=== PATIENT | male | born 1980 | race Caucasian/White ===

== ENCOUNTER 2018-09-27 22:43 | Inpatient (IN) | payer SELFPAY ==
[2018-09-27] MEDS ORDERED: Adacel (T-DAP) 0.5 ML VIAL ONE (22:47)
[2018-09-27] MEDS ORDERED: CEFAZOLIN 2 GM/50 ML-DEXTROSE 2 GM in Premix Bag 1 BAG IVPB SCH (23:00)
[2018-09-27 23:02] LABS: #Eosinphils 0.3 thou/uL (0.0-0.7); #Lymphocytes 1.8 thou/uL (1.20-3.40); #Monocytes 0.7 thou/uL (0.11-0.59); #Neutrophils 5.4 thou/uL (1.40-6.50); %Basophils 0.5 % (0.0-1.0); %Eosinophils 3.5 % (0.0-10.0); %Lymphocytes 22.2 % (21.0-51.0); %Monocytes 8.9 % (0.0-10.0); %Neutrophils 64.8 % (42.0-75.0); Hemoglobin 13.8 g/dL (14.0-18.0); Mean Corpuscular HGB CONC 33.6 g/dL (32.0-36.0); Mean Corpuscular Hemoglobin 30.8 pg (27.0-31.0); Mean Corpuscular Volume 91.9 fL (78.0-98.0); Platelet Count 330 thou/uL (130-400); RBC Distribution Width 11.8 % (11.5-14.5); Red Blood Cell (RBC) Count 4.49 mill/uL (4.70-6.10); White Blood Cell (WBC) Count 8.3 thou/uL (4.8-10.8)
[2018-09-27 23:11] LABS: PTT 25.7 SEC (22.9-36.1); Prothrombin Time 13.6 SEC (12.0-14.7)
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
[2018-09-27 23:15] LABS: ALT (SGPT) 46 U/L (8-55); AST (SGOT) 26 U/L (5-34); Acetaminophen Less than 6.0 mcg/mL (10.0-30.0); Albumin 4.6 g/dL (3.5-5.0); Alcohol Less than 10 mg/dL (Less than 10); Alkaline Phosphatase 53 U/L (40-150); Anion Gap 15 mmol/L (10-20); BUN (Urea Nitrogen) 16 mg/dL (8.9-20.6); Bilirubin, Total 0.4 mg/dL (0.2-1.2); Calc. Creatinine Clearance 0 mL/min (70-130); Calcium 9.7 mg/dL (7.8-10.44); Carbon Dioxide 21 mmol/L (22-29); Chloride 104 mmol/L (98-107); Estimated GFR-MDRD 69; Globulin 2.8 g/dL (2.4-3.5); Glucose 155 mg/dL (70-105); Potassium 3.7 mmol/L (3.5-5.1); Protein, Total 7.4 g/dL (6.0-8.3); Salicylate Less than 8.0 mg/dL (15.0-30.0); Sodium 136 mmol/L (136-145)
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
[2018-09-27] MEDS ORDERED: Fentanyl 100 MCG/2 ML VIAL ONE (23:21)
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
[2018-09-27] MEDS ORDERED: Promethazine HCl 25 MG/ML VIAL IM PRN ×2 (23:59)
[2018-09-27] MEDS ORDERED: Dextrose 50% Abboject 50 ML SYRINGE SLOW IVP PRN (23:59)
[2018-09-27] MEDS ORDERED: hydrALAZINE 20 MG/ML VIAL SLOW IVP PRN (23:59)
[2018-09-27] MEDS ORDERED: Dextrose 5% in Water 1,000 ML IV PRN (23:59)
[2018-09-27] MEDS ORDERED: Ondansetron ODT 4 MG TAB PO PRN (23:59)
[2018-09-27] MEDS ORDERED: Ondansetron PF 4 MG/2 ML Vial IVP PRN (23:59)
[2018-09-27] MEDS ORDERED: Morphine 2 MG/ML SYRINGE IVP PRN (23:59)
[2018-09-28] MEDS: Sodium Chloride 0.9% 1,000 ML IV SCH ×3 (00:27→12:50)
[2018-09-28] MEDS: Acetaminophen 1,000 MG in Premix Bag 1 BAG IVPB SCH ×3 (00:28→12:45)
[2018-09-28] MEDS: Ketorolac Tromethamine 30 MG/ML VIAL IVP SCH ×3 (00:30→12:45)
[2018-09-28] MEDS: Cyclobenzaprine 10 MG TAB PO PRN ×2 (00:31→20:18)
[2018-09-28 01:03] VITALS: BMI 32.3
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
[2018-09-28 05:18] LABS: #Eosinphils 0.6 thou/uL (0.0-0.7); #Lymphocytes 2.8 thou/uL (1.20-3.40); #Monocytes 0.9 thou/uL (0.11-0.59); #Neutrophils 4.9 thou/uL (1.40-6.50); %Basophils 0.4 % (0.0-1.0); %Eosinophils 6.3 % (0.0-10.0); %Lymphocytes 30.6 % (21.0-51.0); %Monocytes 9.5 % (0.0-10.0); %Neutrophils 53.2 % (42.0-75.0); Hemoglobin 12.1 g/dL (14.0-18.0); Mean Corpuscular HGB CONC 33.5 g/dL (32.0-36.0); Mean Corpuscular Hemoglobin 30.8 pg (27.0-31.0); Mean Corpuscular Volume 91.8 fL (78.0-98.0); Mean Platelet Volume 7.2 fL (7.4-10.4); Platelet Count 313 thou/uL (130-400); RBC Distribution Width 11.8 % (11.5-14.5); Red Blood Cell (RBC) Count 3.94 mill/uL (4.70-6.10); White Blood Cell (WBC) Count 9.3 thou/uL (4.8-10.8)
[2018-09-28 05:32] LABS: Anion Gap 9 mmol/L (10-20); BUN (Urea Nitrogen) 14 mg/dL (8.9-20.6); Calc. Creatinine Clearance 166 mL/min (70-130); Calcium 8.6 mg/dL (7.8-10.44); Carbon Dioxide 24 mmol/L (22-29); Chloride 108 mmol/L (98-107); Estimated GFR-MDRD 81; Glucose 103 mg/dL (70-105); Sodium 137 mmol/L (136-145)
[2018-09-28] MEDS ORDERED: CEFAZOLIN/Water 2 GM/20 ML SYRINGE SLOW IVP SCH ×2 (08:00→12:04)
[2018-09-28] MEDS ORDERED: CEFAZOLIN 2 GM/50 ML-DEXTROSE 2 GM in Premix Bag 1 BAG IVPB SCH ×2 (08:15→12:15)
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
[2018-09-28] MEDS: Famotidine 20 MG TAB PO SCH ×2 (08:27→20:18)
[2018-09-28] MEDS ORDERED: CEFAZOLIN 2 GM/50 ML BAG ONE (09:04)
[2018-09-28] MEDS ORDERED: Morphine 4 MG/ML VIAL ONE (09:30)
[2018-09-28] MEDS ORDERED: Fentanyl 100 MCG/2 ML VIAL ONE (10:13)
[2018-09-28] MEDS ORDERED: Midazolam HCl 2 mg/2 ml Vial ONE (10:13)
[2018-09-28] MEDS ORDERED: Ondansetron HCl/PF 4 MG/2 ML Vial IVP PRN (10:57)
[2018-09-28] MEDS ORDERED: Promethazine HCl 25 MG/ML VIAL IM PRN (10:57)
[2018-09-28] MEDS ORDERED: HYDROmorphone 2 MG/ML VIAL SLOW IVP PRN (10:57)
[2018-09-28] MEDS ORDERED: Promethazine HCl 25 MG/ML VIAL SLOW IVP PRN (10:57)
[2018-09-28] MEDS ORDERED: HYDROcodone/Acetaminophen 7.5/325 mg Tablet PO PRN ×2 (11:02)
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
[2018-09-28] MEDS: Ibuprofen 800 MG TAB PO SCH ×2 (13:08→20:19)
[2018-09-28] MEDS ORDERED: PHENYLEPHRINE-NS 100 MCG/ML 10 ML SYRINGE ONE (14:37)
[2018-09-28] MEDS ORDERED: Ondansetron PF 4 MG/2 ML Vial ONE (14:37)
[2018-09-28] MEDS ORDERED: Lidocaine 1% PF 5 ML VIAL ONE (14:37)
[2018-09-28] MEDS ORDERED: PROPOFOL 200 MG/20 ML VIAL ONE (14:37)
[2018-09-28] MEDS ORDERED: Dexamethasone 20 MG/5 ML VIAL ONE (14:37)
[2018-09-28] MEDS ORDERED: traMADol HCl 50 MG TAB PO PRN (15:44)
[2018-09-28] MEDS: CEFAZOLIN 2 GM/50 ML-DEXTROSE 2 GM in Premix Bag 1 BAG IVPB SCH (17:02)
[2018-09-28] MEDS: Acetaminophen 500 MG TAB PO SCH ×2 (17:02→20:19)
[2018-09-28] MEDS: traMADol HCl 50 MG TAB PO PRN (18:47)
[2018-09-29] MEDS: CEFAZOLIN 2 GM/50 ML-DEXTROSE 2 GM in Premix Bag 1 BAG IVPB SCH (01:15)
[2018-09-29] MEDS: traMADol HCl 50 MG TAB PO PRN ×2 (03:14→10:57)
[2018-09-29] MEDS: Acetaminophen 500 MG TAB PO SCH ×2 (03:14→08:01)
[2018-09-29] MEDS: Ibuprofen 800 MG TAB PO SCH (04:30)
[2018-09-29] MEDS: Cyclobenzaprine 10 MG TAB PO PRN (04:30)
[2018-09-29] MEDS: Famotidine 20 MG TAB PO SCH (08:02)
[2018-09-29 12:05] VITALS: BP 136/86; TEMP 98
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
== END 2018-09-29 12:49 | disposition home or self-care (01) | DRG 502 ==
LOC: ERS 22:43 → SURG A 23:57
PROVIDERS: ADMIT Surgery; ATTEND Surgery
PROC: 0KBQ0ZZ Excision of Right Upper Leg Muscle, Open Approach (ICD-10-PCS; principal; 2018-09-28)
PROC: 0QBN0ZZ Excision of Right Metatarsal, Open Approach (ICD-10-PCS; 2018-09-28)
DX: S92.351B Displaced fracture of fifth metatarsal bone, right foot, initial encounter for open fracture (principal); S71.121A Laceration with foreign body, right thigh, initial encounter; F31.9 Bipolar disorder, unspecified; F17.210 Nicotine dependence, cigarettes, uncomplicated; W32.0XXA Accidental handgun discharge, initial encounter; Z79.899 Other long term (current) drug therapy
CPT/HCPCS: 36415; 71045; 80048; 80053; 80307; 85025; 85610; 85730; 86850; 86900; 86901; 90471; 90715; 96361; 96374; 96375; G0390; G8978-GP-CL; G8979-GP-CK; G8987-GO-CI; G8988-GO-CI; J0131; J1100; J1885; J2001; J2250; J2270; J2405; J2704; J3010

== ENCOUNTER 2018-10-19 19:32 | Observation (INO) | payer SELFPAY ==
[2018-10-19] MEDS ORDERED: Cefepime 2 GM in Sodium Chloride 0.9% 100 ML IVPB ONE (20:15)
[2018-10-19 20:28] LABS: #Basophils 0.1 thou/uL (0.0-0.2); #Eosinphils 0.2 thou/uL (0.0-0.7); #Lymphocytes 1.7 thou/uL (1.20-3.40); #Monocytes 0.5 thou/uL (0.11-0.59); #Neutrophils 5.1 thou/uL (1.40-6.50); %Basophils 0.8 % (0.0-1.0); %Eosinophils 2.3 % (0.0-10.0); %Lymphocytes 22.6 % (21.0-51.0); %Monocytes 6.6 % (0.0-10.0); %Neutrophils 67.7 % (42.0-75.0); Hemoglobin 13.7 g/dL (14.0-18.0); Mean Corpuscular HGB CONC 34.9 g/dL (32.0-36.0); Mean Corpuscular Hemoglobin 31.6 pg (27.0-31.0); Mean Corpuscular Volume 90.5 fL (78.0-98.0); Mean Platelet Volume 7.1 fL (7.4-10.4); Platelet Count 460 thou/uL (130-400); RBC Distribution Width 11.6 % (11.5-14.5); Red Blood Cell (RBC) Count 4.32 mill/uL (4.70-6.10); White Blood Cell (WBC) Count 7.5 thou/uL (4.8-10.8)
[2018-10-19] MEDS ORDERED: Ketorolac Tromethamine 30 MG/ML VIAL ONE (20:30)
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
[2018-10-19 20:51] LABS: ALT (SGPT) 87 U/L (8-55); AST (SGOT) 54 U/L (5-34); Albumin 4.6 g/dL (3.5-5.0); Alkaline Phosphatase 68 U/L (40-150); Anion Gap 14 mmol/L (10-20); BUN (Urea Nitrogen) 11 mg/dL (8.9-20.6); Bilirubin, Total 0.3 mg/dL (0.2-1.2); Calc. Creatinine Clearance 0 mL/min (70-130); Calcium 9.9 mg/dL (7.8-10.44); Carbon Dioxide 25 mmol/L (22-29); Chloride 105 mmol/L (98-107); Estimated GFR-MDRD 64; Globulin 3.4 g/dL (2.4-3.5); Glucose 113 mg/dL (70-105); Potassium 4.4 mmol/L (3.5-5.1); Sodium 140 mmol/L (136-145)
[2018-10-19] MEDS ORDERED: Morphine 2 MG/ML SYRINGE ONE ×2 (21:42→21:48)
[2018-10-20] MEDS ORDERED: Morphine 2 MG/ML SYRINGE ONE (00:16)
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
[2018-10-20] MEDS ORDERED: Ondansetron ODT 4 MG TAB PO PRN (01:32)
[2018-10-20] MEDS ORDERED: Dextrose 5% in Water 1,000 ML IV PRN (01:32)
[2018-10-20] MEDS ORDERED: Ondansetron PF 4 MG/2 ML Vial IVP PRN (01:32)
[2018-10-20] MEDS ORDERED: hydrALAZINE 20 MG/ML VIAL SLOW IVP PRN (01:32)
[2018-10-20] MEDS ORDERED: Dextrose 50% Abboject 50 ML SYRINGE SLOW IVP PRN (01:32)
[2018-10-20] MEDS: Sodium Chloride 0.9% 1,000 ML IV SCH ×2 (01:50→19:01)
[2018-10-20] MEDS: Ketorolac Tromethamine 30 MG/ML VIAL IVP SCH ×2 (01:50→07:29)
[2018-10-20] MEDS: Acetaminophen 1,000 MG in Premix Bag 1 BAG IVPB SCH ×2 (01:50→07:30)
[2018-10-20] MEDS: metroNIDAZOLE 500 MG in Premix Bag 1 BAG IVPB SCH ×2 (01:51→07:29)
[2018-10-20 02:11] VITALS: BMI 31.6
[2018-10-20] MEDS: Morphine 2 MG/ML SYRINGE IVP PRN ×4 (04:23→20:54)
[2018-10-20 06:21] LABS: #Eosinphils 0.3 thou/uL (0.0-0.7); #Lymphocytes 2.1 thou/uL (1.20-3.40); #Monocytes 0.8 thou/uL (0.11-0.59); #Neutrophils 3.7 thou/uL (1.40-6.50); %Basophils 0.7 % (0.0-1.0); %Eosinophils 4.4 % (0.0-10.0); %Lymphocytes 30.9 % (21.0-51.0); %Monocytes 11.2 % (0.0-10.0); %Neutrophils 52.8 % (42.0-75.0); Mean Corpuscular Hemoglobin 31.1 pg (27.0-31.0); Mean Corpuscular Volume 91.4 fL (78.0-98.0); Mean Platelet Volume 7.2 fL (7.4-10.4); Platelet Count 425 thou/uL (130-400); RBC Distribution Width 11.7 % (11.5-14.5); Red Blood Cell (RBC) Count 3.87 mill/uL (4.70-6.10); White Blood Cell (WBC) Count 6.9 thou/uL (4.8-10.8)
[2018-10-20 06:25] LABS: Anion Gap 12 mmol/L (10-20); BUN (Urea Nitrogen) 13 mg/dL (8.9-20.6); Calc. Creatinine Clearance 176 mL/min (70-130); Calcium 9.2 mg/dL (7.8-10.44); Carbon Dioxide 21 mmol/L (22-29); Chloride 109 mmol/L (98-107); Estimated GFR-MDRD 89; Glucose 97 mg/dL (70-105); Potassium 4.2 mmol/L (3.5-5.1); Sodium 138 mmol/L (136-145)
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
[2018-10-20] MEDS ORDERED: Ibuprofen 800 MG TAB PO PRN (12:03)
[2018-10-20] MEDS ORDERED: traMADol HCl 50 MG TAB PO PRN (12:03)
[2018-10-20] MEDS ORDERED: Acetaminophen 500 MG TAB PO SCH (12:30)
[2018-10-20] MEDS: cefTRIAXone\\ROCEPHIN 2 GM in Sodium Chloride 0.9% 100 ML IVPB SCH (12:57)
[2018-10-20] MEDS: traMADol HCl 50 MG TAB PO PRN ×2 (12:59→17:24)
[2018-10-20] MEDS: Gabapentin 400 MG CAP PO SCH ×2 (12:59→17:25)
[2018-10-20] MEDS: Famotidine 20 MG TAB PO SCH ×2 (13:03→20:55)
[2018-10-20] MEDS ORDERED: PHARMACY TO DOSE VANCOMYCIN FS PRN (13:19)
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
[2018-10-20] MEDS: busPIRone HCl 10 MG TAB PO SCH ×2 (17:24→20:55)
[2018-10-20] MEDS: Acetaminophen 500 MG TAB PO SCH (17:24)
[2018-10-20] MEDS: Mirtazapine 30 MG TAB PO SCH (20:55)
[2018-10-20] MEDS: OXcarbazepine 300 MG TAB PO SCH (20:56)
[2018-10-21] MEDS: traMADol HCl 50 MG TAB PO PRN ×2 (00:21→21:16)
[2018-10-21] MEDS: Gabapentin 400 MG CAP PO SCH ×4 (00:21→17:04)
[2018-10-21] MEDS: Acetaminophen 500 MG TAB PO SCH ×4 (00:21→16:59)
[2018-10-21] MEDS: Morphine 2 MG/ML SYRINGE IVP PRN (05:58)
[2018-10-21] MEDS: cefTRIAXone\\ROCEPHIN 2 GM in Sodium Chloride 0.9% 100 ML IVPB SCH (08:54)
[2018-10-21] MEDS: Perphenazine 2 MG TAB PO SCH ×2 (08:54→21:17)
[2018-10-21] MEDS: Famotidine 20 MG TAB PO SCH ×2 (08:55→21:16)
[2018-10-21] MEDS: busPIRone HCl 10 MG TAB PO SCH ×3 (08:55→21:31)
[2018-10-21] MEDS: OXcarbazepine 300 MG TAB PO SCH ×2 (08:56→21:17)
[2018-10-21] MEDS: Senokot 8.6 MG TAB PO SCH ×2 (09:06→21:18)
[2018-10-21] MEDS: Polyethylene Glycol 3350 17 GM Packet PO SCH (09:06)
[2018-10-21 09:17] LABS: Vancomycin, Trough 30.1 ug/mL
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
[2018-10-21] MEDS ORDERED: Vancomycin HCl 1.75 GM in Sodium Chloride 0.9% 500 ML IVPB SCH (21:00)
[2018-10-21] MEDS: Sulfameth/Trimethoprim DS 800-160mg TAB PO SCH (21:16)
[2018-10-21] MEDS: Mirtazapine 30 MG TAB PO SCH (21:17)
[2018-10-22] MEDS: Gabapentin 400 MG CAP PO SCH ×2 (00:51→05:42)
[2018-10-22] MEDS: Acetaminophen 500 MG TAB PO SCH ×2 (00:52→05:42)
[2018-10-22] MEDS: traMADol HCl 50 MG TAB PO PRN (05:43)
[2018-10-22 05:54] LABS: Anion Gap 12 mmol/L (10-20); BUN (Urea Nitrogen) 9 mg/dL (8.9-20.6); Calc. Creatinine Clearance 178 mL/min (70-130); Carbon Dioxide 23 mmol/L (22-29); Chloride 110 mmol/L (98-107); Estimated GFR-MDRD 90; Glucose 89 mg/dL (70-105); Potassium 3.9 mmol/L (3.5-5.1); Sodium 141 mmol/L (136-145)
[2018-10-22] MEDS: Famotidine 20 MG TAB PO SCH (09:11)
[2018-10-22] MEDS: Perphenazine 2 MG TAB PO SCH (09:12)
[2018-10-22] MEDS: OXcarbazepine 300 MG TAB PO SCH (09:16)
[2018-10-22] MEDS: Senokot 8.6 MG TAB PO SCH (09:17)
[2018-10-22] MEDS: Polyethylene Glycol 3350 17 GM Packet PO SCH (09:17)
[2018-10-22] MEDS: Sulfameth/Trimethoprim DS 800-160mg TAB PO SCH (09:22)
[2018-10-22 09:24] VITALS: BP 146/91; TEMP 98.3
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
== END 2018-10-22 12:46 | disposition home or self-care (01) ==
LOC: ERS 19:32 → SURG B 23:30
PROVIDERS: ADMIT Surgery; ATTEND Surgery
DX: L03.115 Cellulitis of right lower limb (principal); B95.62 Methicillin resistant Staphylococcus aureus infection as the cause of diseases classified elsewhere; S92.351A Displaced fracture of fifth metatarsal bone, right foot, initial encounter for closed fracture; F31.9 Bipolar disorder, unspecified; F41.9 Anxiety disorder, unspecified; F17.210 Nicotine dependence, cigarettes, uncomplicated; F15.10 Other stimulant abuse, uncomplicated; Z98.890 Other specified postprocedural states; Z79.899 Other long term (current) drug therapy; W34.00XA Accidental discharge from unspecified firearms or gun, initial encounter
CPT/HCPCS: 36415; 80048; 80053; 80202; 85025; 86140; 87070; 87077; 87186; 87205; 96361; 96365; 96366; 96367; 96375; 96376; G0378; G8978-GP-CI; G8979-GP-CI; G8980-GP-CI; G8987-GO-CI; G8988-GO-CI; G8989-GO-CI; J0131; J0360; J0692; J0696; J1885; J2270; J3370; J7050; Q0175

== ENCOUNTER 2020-08-06 13:59 | Inpatient (IN) | payer OTHER, SELFPAY ==
[2020-08-06] MEDS ORDERED: Iopamidol-370 76% 500 ML 1 ML ONE (14:44)
[2020-08-06] MEDS ORDERED: Cefepime 2 GM VIAL ONE (15:02)
[2020-08-06] MEDS ORDERED: Ketorolac Tromethamine 30 MG/ML VIAL ONE (15:03)
[2020-08-06 15:41] LABS: Hemoglobin 11.8 g/dL (14.0-18.0); Mean Corpuscular HGB CONC 34.8 g/dL (32.0-36.0); Mean Corpuscular Hemoglobin 33.2 pg (27.0-31.0); Mean Corpuscular Volume 95.3 fL (78.0-98.0); Mean Platelet Volume 7.1 fL (7.4-10.4); Platelet Count 197 thou/uL (130-400); RBC Distribution Width 11.7 % (11.5-14.5); Red Blood Cell (RBC) Count 3.55 mill/uL (4.70-6.10); White Blood Cell (WBC) Count 21.7 thou/uL (4.8-10.8)
[2020-08-06 16:00] LABS: Band 56 % (5-11); Lymphocytes 2 % (21-51); MDiff Complete? YES; Monocytes 2 % (0-10); Platelet Morphology Comment Appears Adequate; Polychromasia SLIGHT = 2-3 cells (100X) (0-2/hpf); Reactive Lymphocytes 1 % (0-10); Reflex for Review?? YES
[2020-08-06 16:03] LABS: ALT (SGPT) 23 U/L (8-55); AST (SGOT) 17 U/L (5-34); Albumin 3.4 g/dL (3.5-5.0); Alkaline Phosphatase 70 U/L (40-110); Anion Gap 15 mmol/L (10-20); BUN (Urea Nitrogen) 12 mg/dL (8.9-20.6); Bilirubin, Total 0.6 mg/dL (0.2-1.2); Calc. Creatinine Clearance 0 mL/min (70-130); Carbon Dioxide 19 mmol/L (22-29); Chloride 104 mmol/L (98-107); Estimated GFR-MDRD 77; Globulin 2.8 g/dL (2.4-3.5); Glucose 133 mg/dL (70-105); Neutrophil 39 % (42-75); Potassium 4.3 mmol/L (3.5-5.1); Protein, Total 6.2 g/dL (6.0-8.3); Sodium 134 mmol/L (136-145)
--- NOTE | 2020-08-06 18:04 | CT ---
Exam: Right lower extremity CT with contrast HISTORY: Right lower limb cellulitis. Evaluate for deep infection FINDINGS: There is marked soft tissue edema. There is edema involving the anterior and posterior as well as the medial/lateral fat. There does not appear to be any definite intramuscular abscess or intramuscular fluid collection. Mild edematous changes involving the anterior and posterior muscles o f the right lower extremity is identified. Visualized right lower survey arterial system is patent. Small right knee joint fluid is suspected. Grossly the meniscus, posterior cruciate ligament and anterior cruciate ligament appear to be intact. There are no erosive or destructive changes in the visualized distal femur, patella, tibia and fibula . The visualized hindfoot is also unremarkable. IMPRESSION: 1. Extensive soft tissue edema, worrisome for cellulitis. No evidence of intramuscular abscess or int ramuscular fluid collection. 2. No CT evidence of osteomyelitis. Transcribed Date/Time: 08/06/2020 6:07 PM
[2020-08-06 18:41] VITALS: BMI 35.0
[2020-08-06] MEDS ORDERED: Morphine 4 MG/ML VIAL SLOW IVP SCH (19:45)
[2020-08-06] MEDS: HYDROcodone/Acetaminophen 5/325 mg Tablet PO PRN ×2 (19:54→23:44)
[2020-08-06] MEDS: busPIRone HCl 10 MG TAB PO SCH (20:36)
[2020-08-06] MEDS: OXcarbazepine 300 MG TAB PO SCH (20:37)
[2020-08-06] MEDS: Gabapentin 400 MG CAP PO SCH (20:37)
[2020-08-06] MEDS: Piperacillin/Tazobactam 3.375 GM in Sodium Chloride 0.9% 100 ML IVPB SCH (20:38)
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
[2020-08-06] MEDS ORDERED: Vancomycin 1.5 GRAM/300 ML BAG 1.5 GM in Premix Bag 1 BAG IVPB SCH (21:00)
[2020-08-07] MEDS: Piperacillin/Tazobactam 3.375 GM in Sodium Chloride 0.9% 100 ML IVPB SCH ×3 (02:09→12:35)
[2020-08-07] MEDS: HYDROcodone/Acetaminophen 5/325 mg Tablet PO PRN ×5 (04:36→20:20)
[2020-08-07] MEDS ORDERED: Sodium Chloride 0.9% 500 ML IV SCH (06:00)
[2020-08-07 07:37] LABS: Anion Gap 14 mmol/L (10-20); BUN (Urea Nitrogen) 9 mg/dL (8.9-20.6); Calc. Creatinine Clearance 193 mL/min (70-130); Carbon Dioxide 18 mmol/L (22-29); Chloride 106 mmol/L (98-107); Estimated GFR-MDRD 90; Glucose 95 mg/dL (70-105); Potassium 4.2 mmol/L (3.5-5.1); Sodium 134 mmol/L (136-145)
[2020-08-07] MEDS: Sodium Chloride 0.9% 1,000 ML IV SCH ×2 (07:43→16:17)
[2020-08-07] MEDS: busPIRone HCl 10 MG TAB PO SCH ×3 (07:44→20:19)
[2020-08-07] MEDS: Enoxaparin Sodium 40 MG/0.4 ML SYRINGE SC SCH (07:44)
[2020-08-07] MEDS: OXcarbazepine 300 MG TAB PO SCH ×2 (07:45→20:19)
[2020-08-07] MEDS: Gabapentin 400 MG CAP PO SCH ×4 (07:45→20:20)
[2020-08-07 08:28] LABS: Band 25 % (5-11); Hemoglobin 11.9 g/dL (14.0-18.0); Lymphocytes 3 % (21-51); MDiff Complete? YES; Mean Corpuscular HGB CONC 34.2 g/dL (32.0-36.0); Mean Corpuscular Volume 96.6 fL (78.0-98.0); Mean Platelet Volume 7.8 fL (7.4-10.4); Metamyelocyte 1 % (0-0); Monocytes 1 % (0-10); Platelet Count 211 thou/uL (130-400); RBC Distribution Width 11.8 % (11.5-14.5); Red Blood Cell (RBC) Count 3.61 mill/uL (4.70-6.10); Toxic Granulation SLIGHT; White Blood Cell (WBC) Count 19.7 thou/uL (4.8-10.8)
[2020-08-07 12:43] LABS: SARS-CoV-2 MS2 Positive; SARS-CoV-2 N Gene Negative; SARS-CoV-2 S Gene Negative; SARS-CoV-2 by NAA Not Detected (NotDetected); SARS-CoV-2 orf1ab Negative
[2020-08-07 17:16] LABS: Syphilis Antibody Nonreactive (Nonreactive); Syphilis Antibody Index 0.04 S/CO (<1.00 Non-Reactive)
[2020-08-07 17:18] LABS: HBSAB Concentration Less than 8.00 mIU/mL; HBSAg Index 0.17 S/CO (0-0.99); HIV (1/2) Antibody/Antigen Non-Reactive (NonReactive); HIV 1/2 INDEX 0.08 S/CO (<1.00); Hep B Surf AB Non-Reactive (NonReactive); Hep B Surf Ag Non-Reactive S/CO (NonReactive); Hep C IgG Ab Non-Reactive (NonReactive); Hep C Index 0.05 S/CO (0-0.79)
[2020-08-07] MEDS: Cefepime 2 GM in Sodium Chloride 0.9% 100 ML IVPB SCH (20:22)
--- NOTE | 2020-08-07 21:21 | PDOC.HOSPP ---
- Subjective Encounter Date: 08/07/20 Encounter Time: 10:00 Subjective: Patient was seen and examined in bed. He complains of ongoing pain in his right leg which is worsening. He denies any chest pain or shortness of breath. - Objective Vital Signs & Weight: Vital Signs (12 hours) Temp Pulse Resp BP Pulse Ox 08/07/20 20:43 98 08/07/20 19:46 98.8 F 89 20 132/65 98 Weight Weight 288 lb 3.2 oz I&O: 08/06/20 08/07/20 08/08/20 06:59 06:59 06:59 Intake Total 4690 Balance 4690 Result Diagrams: 08/07/20 06:38 08/07/20 06:38 Hospitalist ROS - Medication Medications: Active Medications Generic Name Dose Route Start Last Admin Trade Name Freq PRN Reason Stop Dose Admin Hydrocodone Bitart/Acetaminophen 1 tab 08/06/20 19:34 08/06/20 19:54 [place] 5/325 PO 1 tab Q4H PRN Administration Moderate Pain (4-6) Hydrocodone Bitart/Acetaminophen 2 tab 08/06/20 19:34 08/07/20 20:20 [place] 5/325 PO 2 tab Q4H PRN Administration Severe Pain (7-10) Buspirone HCl 30 mg 08/06/20 21:00 08/07/20 20:19 Buspar PO 30 mg TID ROSANNA Administration Enoxaparin Sodium 40 mg 08/07/20 09:00 08/07/20 07:44 Lovenox SC 40 mg 0900 ROSANNA Administration Gabapentin 800 mg 08/06/20 21:00 08/07/20 20:20 Neurontin PO 800 mg QID ROSANNA Administration Vancomycin HCl 2 gm/ Sodium 500 mls @ 250 mls/hr 08/06/20 23:59 08/07/20 16:12 Chloride IVPB 500 mls 0800,1600,2359 ROSANNA Administration Sodium Chloride 1,000 mls @ 100 mls/hr 08/07/20 07:15 08/07/20 16:17 Normal Saline 0.9% IV Not Given .Q10H ROSANNA Cefepime HCl 2 gm/ Sodium 100 mls @ 200 mls/hr 08/07/20 21:00 08/07/20 20:22 Chloride IVPB 100 mls Q12HR ROSANNA Administration Oxcarbazepine 300 mg 08/06/20 21:00 08/07/20 20:19 Trileptal PO 300 mg BID ROSANNA Administration Quetiapine Fumarate 600 mg 08/06/20 21:00 08/07/20 20:20 Seroquel PO 600 mg HS ROSANNA Administration Sodium Chloride 10 ml 08/07/20 09:00 08/07/20 20:34 Flush - Normal Saline IVF Not Given Q12HR ROSANNA - Exam General - other findings: Patient is in bed, in mild distress due to pain. Heart - other findings: S1-S2 present. No murmurs gallops or rubs. Respiratory - other findings: Air entry adequate bilaterally. Gastrointestinal - other findings: Abdomen. Soft, bowel sounds present and normal Extremities - other findings: Right lower leg erythematous and swollen. Dorsalis pedis present bilateral Hosp A/P - Plan This is a 40-year-old man with a history of bipolar disorder admitted on account of severe right lower limb cellulitis. Right lower limb cellulitis Seems to have worsened overnight. Has been on Vanco and Zosyn ID consultedchanged to Vanco and cefepime to increase of coverage Sample taken for biopsy. Appreciate ID input. Bipolar disorder Continue antipsychotic medications DVT prophylaxis
[2020-08-08] MEDS: HYDROcodone/Acetaminophen 5/325 mg Tablet PO PRN ×5 (00:19→21:30)
[2020-08-08] MEDS: Sodium Chloride 0.9% 1,000 ML IV SCH ×2 (04:32→13:40)
[2020-08-08] MEDS: Enoxaparin Sodium 40 MG/0.4 ML SYRINGE SC SCH (08:20)
[2020-08-08] MEDS: Gabapentin 400 MG CAP PO SCH ×4 (08:22→20:35)
[2020-08-08] MEDS: OXcarbazepine 300 MG TAB PO SCH ×2 (08:24→20:35)
[2020-08-08] MEDS: busPIRone HCl 10 MG TAB PO SCH ×3 (08:24→20:35)
[2020-08-08] MEDS: Cefepime 2 GM in Sodium Chloride 0.9% 100 ML IVPB SCH ×2 (08:30→21:30)
[2020-08-08 09:23] LABS: #Eosinphils 0.3 thou/uL (0.0-0.7); #Lymphocytes 1.3 thou/uL (1.20-3.40); #Monocytes 1.2 thou/uL (0.11-0.59); #Neutrophils 15.3 thou/uL (1.40-6.50); %Basophils 0.2 % (0.0-1.0); %Eosinophils 1.8 % (0.0-10.0); %Lymphocytes 7.1 % (21.0-51.0); %Monocytes 6.4 % (0.0-10.0); %Neutrophils 84.6 % (42.0-75.0); Hemoglobin 11.2 g/dL (14.0-18.0); Mean Corpuscular HGB CONC 33.5 g/dL (32.0-36.0); Mean Corpuscular Volume 95.5 fL (78.0-98.0); Mean Platelet Volume 6.9 fL (7.4-10.4); Platelet Count 272 thou/uL (130-400); RBC Distribution Width 11.8 % (11.5-14.5); Red Blood Cell (RBC) Count 3.49 mill/uL (4.70-6.10); White Blood Cell (WBC) Count 18.1 thou/uL (4.8-10.8)
[2020-08-08] MEDS ORDERED: Furosemide 40 MG/4 ML VIAL SLOW IVP SCH (09:45)
[2020-08-08 09:46] LABS: Anion Gap 13 mmol/L (10-20); BUN (Urea Nitrogen) 8 mg/dL (8.9-20.6); Calc. Creatinine Clearance 225 mL/min (70-130); Calcium 8.3 mg/dL (7.8-10.44); Carbon Dioxide 21 mmol/L (22-29); Chloride 106 mmol/L (98-107); Estimated GFR-MDRD Greater than 90; Glucose 98 mg/dL (70-105); Potassium 3.6 mmol/L (3.5-5.1); Sodium 136 mmol/L (136-145)
--- NOTE | 2020-08-08 10:59 | RAD ---
CHEST 1 VIEW: Date: 08/08/2020 INDICATION: History of dyspnea. COMPARISON: Prior exam dated 09/27/2018. FINDINGS: There is patchy air space opacity seen within the left lung base. The right lung is clear. Heart size is normal. No acute osseous abnormality is evident. IMPRESSION: Patchy air space opacity in the left lung base may reflect developing pneumonia. Recommend correlatio n. POS: BH
[2020-08-08 11:36] LABS: Band 32 % (5-11); Eosinophils 3 % (0-10); Lymphocytes 5 % (21-51); Metamyelocyte 1 % (0-0); Monocytes 6 % (0-10)
[2020-08-08 11:37] LABS: Platelet Morphology Comment Appears Adequate
[2020-08-08 11:38] LABS: Neutrophil 58 % (42-75)
[2020-08-08] MEDS ORDERED: Clindamycin/D5W 600 MG in Premix Bag 1 BAG IVPB SCH (12:00)
--- NOTE | 2020-08-08 14:02 | PDOC.HOSPP ---
- Subjective Encounter Date: 08/08/20 Encounter Time: 12:00 Subjective: Patient was seen and examined in bed. He complains of ongoing worsening pain in his right leg with generally feeling of swelling. He is also a bit anxious - Objective Vital Signs & Weight: Vital Signs (12 hours) Temp Pulse Resp BP Pulse Ox 08/08/20 11:25 98.9 F 107 H 24 H 132/81 94 L 08/08/20 07:42 99.1 F 110 H 26 H 132/81 95 08/08/20 04:00 98.3 F 118 H 20 143/70 H 94 L Weight Admit Weight 288 lb 3.2 oz Weight 288 lb 3.2 oz I&O: 08/07/20 08/08/20 08/09/20 06:59 06:59 06:59 Intake Total 8690 Balance 8690 Result Diagrams: 08/08/20 09:19 08/08/20 09:19 Hospitalist ROS - Medication Medications: Active Medications Generic Name Dose Route Start Last Admin Trade Name Freq PRN Reason Stop Dose Admin Hydrocodone Bitart/Acetaminophen 1 tab 08/06/20 19:34 08/06/20 19:54 [place] 5/325 PO 1 tab Q4H PRN Administration Moderate Pain (4-6) Hydrocodone Bitart/Acetaminophen 2 tab 08/06/20 19:34 08/08/20 13:37 [place] 5/325 PO 2 tab Q4H PRN Administration Severe Pain (7-10) Buspirone HCl 30 mg 08/06/20 21:00 08/08/20 08:24 Buspar PO 30 mg TID ROSANNA Administration Enoxaparin Sodium 40 mg 08/07/20 09:00 08/08/20 08:20 Lovenox SC 40 mg 0900 ROSANNA Administration Gabapentin 800 mg 08/06/20 21:00 08/08/20 08:22 Neurontin PO 800 mg QID ROSANNA Administration Vancomycin HCl 2 gm/ Sodium 500 mls @ 250 mls/hr 08/06/20 23:59 08/08/20 10:18 Chloride IVPB 500 mls 0800,1600,2359 ROSANNA Administration Sodium Chloride 1,000 mls @ 100 mls/hr 08/07/20 07:15 08/08/20 13:40 Normal Saline 0.9% IV 1,000 mls .Q10H ROSANNA Administration Cefepime HCl 2 gm/ Sodium 100 mls @ 200 mls/hr 08/07/20 21:00 08/08/20 08:30 Chloride IVPB 100 mls Q12HR ROSANNA Administration Oxcarbazepine 300 mg 08/06/20 21:00 08/08/20 08:24 Trileptal PO 300 mg BID ROSANNA Administration Quetiapine Fumarate 600 mg 08/06/20 21:00 08/07/20 20:20 Seroquel PO 600 mg HS ROSANNA Administration Sodium Chloride 10 ml 08/07/20 09:00 08/08/20 08:30 Flush - Normal Saline IVF Not Given Q12HR ROSANNA - Exam General - other findings: Patient in bed, in mild distress. Heart - other findings: S1-S2 present and normal. No murmurs gallops or rubs. Respiratory - other findings: Air entry adequate bilaterally. No rhonchi or rales Extremities - other findings: Left leg swelling with proximal worsening erythema. Wound dressed Hosp A/P - Plan This is a 40-year-old man with a history of bipolar disorder admitted on account of severe right lower limb cellulitis. Sepsis At presentation No significantly worsening however not much improved Has been on gentle hydration 100 mils per hour however feels bloatedwe will discontinue BP has been stable Continue treating for cellulitis. Right lower limb cellulitis Seems to have worsened overnight. Leukocytosis with bands. Bands was 56 on the first day and reduced to 25 however increased today to 32 Was initially on Vanco and Zosyn ID consultedchanged to Vanco and cefepime to increase of coverage for Staphylococcus. Wound culturesno gangrene so far We will add clindamycin for anaerobic coverage and toxin shutdown We will do MRI of knee and right lower limb to be sure this no abscess or osteomyelitisno osteomyelitis or deep abscess/infection noted. No necrotizing fasciitis. Appreciate ID input. Tachypnea Patient having tachypnea concerns for possible fluid overload Chest x-ray showed patchy left infiltrateto cultivate for pneumonia We will cover with antibiotics as above Monitor Edema Noted swelling and abdominal distention Likely due to fluid resuscitation iV fluids for now Lasix 40 mg and monitor Bipolar disorder Continue antipsychotic medications DVT prophylaxis
--- NOTE | 2020-08-08 14:02 | MRI ---
RIGHT LOWER EXTREMITY MRI WITH AND WITHOUT IV CONTRAST: Date: 08/08/2020 HISTORY: Worsening cellulitis, concern for knee involvement. FINDINGS: Very extensive subcutaneous edema and fluid involving essentially the entire visualized lower extremi ty from above the level of the knee down to the level of the ankle. There is some fluid density adjac ent to the superficial fascia, evidence for associated superficial fasciitis. No evidence for deep in tramuscular abnormal signal or intramuscular abscess or myonecrosis. There is a small amount of fluid within the partially visualized suprapatellar recess, as well as the semimembranosus gastrocnemius r ecess. There is a suggestion of some subtle increased signal on the periphery of the anterior compart ment musculature, possibly some very mild superficial myositis. No evidence for osteomyelitis. IMPRESSION: Very extensive superficial subcutaneous edema, cellulitis, and/or fluid. Evidence for extensive cellu litis with some associated superficial fasciitis and possibly some very minimal subtle peripheral lenny sitis changes involving the anterior compartment muscles, but no evidence for deep intramuscular flui d collection or abscess or myonecrosis. No evidence for osteomyelitis. No evidence for deep necrosing fasciitis. POS: OFF
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
[2020-08-08 15:44] LABS: Vancomycin, Trough 32.7 ug/mL
[2020-08-08] MEDS ORDERED: Naproxen 500 MG TAB PO PRN (16:04)
[2020-08-08] MEDS: Clindamycin/D5W 600 MG in Premix Bag 1 BAG IVPB SCH ×2 (16:18→20:35)
--- NOTE | 2020-08-08 18:12 | PRG ---
DATE OF SERVICE: 08/08/2020 SUBJECTIVE: The patient is having more pain in the right lower extremity around the knee and the leg. Some cough. No chest pain. No dyspnea. No abdominal pain or diarrhea. OBJECTIVE: VITAL SIGNS: T-max 99.1, blood pressure 130/80, heart rate 107, respiratory rate 24, and O2 saturation 94. GENERAL: Appears in some distress from pain. EXTREMITIES: Still with areas of inflammatory changes in the right lower extremity. The area of the right prepatellar region still with fluid consistency, sort of cystic consistency in the area. LABORATORY DATA: White cell count 18,000 hemoglobin 11, and platelets 272 with 84% neutrophils and 32% bands. Manual chemistry normal. The sample submitted yesterday still pending, some growth in subculture in progress. Chest x-ray with patchy airspace opacity in the left lung base. ASSESSMENT: The patient has this inflammatory process, which most likely is secondary to Staphylococcus aureus, either methicillin-resistant Staphylococcus aureus or methicillin-sensitive Staphylococcus aureus. A gram-negative leandro is not ruled out. He may have areas of abscess forming in the right lower extremity and this may most likely explain the persistence of the inflammatory process. I would suggest an MRI of the right lower extremity, which might give us more detail on the possibility of an abscess, particularly in the prepatellar region, but also in the anterior leg. The findings in the left lung are kind of subtle, not yet developing into a full infiltrate. Job ID: [id number]
[2020-08-09] MEDS: Clindamycin/D5W 600 MG in Premix Bag 1 BAG IVPB SCH ×4 (02:00→23:47)
[2020-08-09 03:03] LABS: Vancomycin, Random 7.1 ug/mL (See Comment)
[2020-08-09 03:04] LABS: Calc. Creatinine Clearance 219 mL/min (70-130); Estimated GFR-MDRD Greater than 90
[2020-08-09] MEDS ORDERED: Vancomycin 1.5 GRAM/300 ML BAG 1.5 GM in Premix Bag 1 BAG IVPB SCH (04:00)
[2020-08-09] MEDS: Vancomycin HCl 1.75 GM in Sodium Chloride 0.9% 500 ML IVPB SCH ×3 (04:29→21:51)
[2020-08-09 06:03] LABS: Band 15 % (5-11); Eosinophils 1 % (0-10); Hemoglobin 11.3 g/dL (14.0-18.0); Lymphocytes 9 % (21-51); MDiff Complete? YES; Mean Corpuscular HGB CONC 33.7 g/dL (32.0-36.0); Mean Corpuscular Hemoglobin 32.6 pg (27.0-31.0); Mean Corpuscular Volume 96.7 fL (78.0-98.0); Monocytes 11 % (0-10); Platelet Count 307 thou/uL (130-400); RBC Distribution Width 11.9 % (11.5-14.5); Red Blood Cell (RBC) Count 3.46 mill/uL (4.70-6.10)
[2020-08-09 06:13] LABS: Anion Gap 14 mmol/L (10-20); BUN (Urea Nitrogen) 7 mg/dL (8.9-20.6); Calc. Creatinine Clearance 230 mL/min (70-130); Calcium 8.8 mg/dL (7.8-10.44); Carbon Dioxide 24 mmol/L (22-29); Chloride 104 mmol/L (98-107); Estimated GFR-MDRD Greater than 90; Glucose 99 mg/dL (70-105); Potassium 3.3 mmol/L (3.5-5.1); Sodium 139 mmol/L (136-145)
[2020-08-09] MEDS: busPIRone HCl 10 MG TAB PO SCH ×3 (07:48→21:49)
[2020-08-09] MEDS: OXcarbazepine 300 MG TAB PO SCH ×2 (07:48→21:50)
[2020-08-09] MEDS: HYDROcodone/Acetaminophen 5/325 mg Tablet PO PRN ×3 (07:49→21:50)
[2020-08-09] MEDS: Cefepime 2 GM in Sodium Chloride 0.9% 100 ML IVPB SCH (07:50)
[2020-08-09] MEDS: Enoxaparin Sodium 40 MG/0.4 ML SYRINGE SC SCH (07:50)
[2020-08-09 08:59] LABS: Neutrophil 64 % (42-75)
[2020-08-09] MEDS ORDERED: Electrolyte Replacement Protoc 1 EACH EACH FS SCH (09:15)
[2020-08-09] MEDS ORDERED: Electrolyte Replacement Protocol FS PRN (09:30)
[2020-08-09] MEDS: Gabapentin 400 MG CAP PO SCH ×4 (09:46→21:49)
[2020-08-09] MEDS ORDERED: Potassium Chloride 20 MEQ TAB PO SCH (10:15)
[2020-08-09 12:17] LABS: Neutrophil 70 % (42-75)
--- NOTE | 2020-08-09 12:34 | PRG ---
DATE OF SERVICE: 08/09/2020 SUBJECTIVE: Still quite a bit of pain in the right leg, mostly around the midportion of the anterior right leg, not much in the knee or the thigh. No vomiting, respiratory symptoms, or abdominal pain. No diarrhea. OBJECTIVE: VITAL SIGNS: T-max 99.8, he had 100 yesterday at 3 p.m. EXTREMITIES: The leg is still with erythema, kind of pink-colored, not very bright erythema extending from the leg to the thigh. No purulent drainage. No areas of focal accumulation of pus noted. LUNGS: Clear. HEART: S1 and S2, regular rate. ABDOMEN: Soft, not distended. GENITOURINARY: No genital abnormalities. LABORATORY DATA: White cell count 20,000; hemoglobin 11; platelets 307; bands are down to 15%, which is improved. Creatinine 0.78. Microbiology with Staph aureus and beta-hemolytic strep group A. The susceptibility of the Staph aureus is still pending. He is currently on cefepime, clindamycin, and vancomycin. ASSESSMENT AND DISCUSSION: The MRI did not show any focal purulent exudate accumulation in the leg. Organism is likely either a Staphylococcus aureus or group A Streptococcus. We will switch him to cefazolin. Continue with vancomycin and clindamycin. Discontinue cefepime. Job ID: [id number]
--- NOTE | 2020-08-09 13:53 | PDOC.HOSPP ---
- Subjective Encounter Date: 08/09/20 Encounter Time: 11:00 Subjective: Patient was seen and examined in bed. He complained of same level of pain in his right leg. Denied any chest pain or shortness of breath. - Objective Vital Signs & Weight: Vital Signs (12 hours) Temp Pulse Resp BP BP Pulse Ox 08/09/20 11:58 99.0 F 100 18 159/85 H 97 08/09/20 07:24 98.3 F 108 H 20 126/82 98 08/09/20 03:00 99.8 F H 109 H 20 141/89 H 97 Weight Admit Weight 288 lb 3.2 oz Weight 288 lb 3.2 oz I&O: 08/08/20 08/09/20 08/10/20 06:59 06:59 06:59 Intake Total 8690 Balance 8690 Result Diagrams: 08/09/20 05:36 08/09/20 05:35 Hospitalist ROS - Medication Medications: Active Medications Generic Name Dose Route Start Last Admin Trade Name Freq PRN Reason Stop Dose Admin Hydrocodone Bitart/Acetaminophen 1 tab 08/06/20 19:34 08/08/20 21:30 [place] 5/325 PO 1 tab Q4H PRN Administration Moderate Pain (4-6) Hydrocodone Bitart/Acetaminophen 2 tab 08/06/20 19:34 08/09/20 12:18 [place] 5/325 PO 2 tab Q4H PRN Administration Severe Pain (7-10) Buspirone HCl 30 mg 08/06/20 21:00 08/09/20 07:48 Buspar PO 30 mg TID ROSANNA Administration Enoxaparin Sodium 40 mg 08/07/20 09:00 08/09/20 07:50 Lovenox SC 40 mg 0900 ROSANNA Administration Gabapentin 800 mg 08/06/20 21:00 08/09/20 09:46 Neurontin PO 800 mg QID ROSANNA Administration Clindamycin Phosphate/Dextrose 50 mls @ 100 mls/hr 08/08/20 14:00 08/09/20 07:48 600 mg/ Device IVPB 50 mls Q6H ROSANNA Administration Vancomycin HCl 1.75 gm/ Sodium 500 mls @ 250 mls/hr 08/09/20 04:00 08/09/20 12:21 Chloride IVPB 500 mls 0400,1200,2000 ROSANNA Administration Naproxen 500 mg 08/08/20 16:04 08/08/20 17:21 Naprosyn PO 500 mg TIDPRN PRN Administration Mild-Moderate Pain (1-5) Oxcarbazepine 300 mg 08/06/20 21:00 08/09/20 07:48 Trileptal PO 300 mg BID ROSANNA Administration Quetiapine Fumarate 600 mg 08/06/20 21:00 08/08/20 20:35 Seroquel PO 600 mg HS ROSANNA Administration Sodium Chloride 10 ml 08/07/20 09:00 08/09/20 07:50 Flush - Normal Saline IVF 10 ml Q12HR ROSANNA Administration - Exam General - other findings: Patient in bed, in no acute distress. Heart - other findings: S1-S2 present and normal. No murmurs gallops or rubs. Respiratory - other findings: Entry adequate bilaterally. No rhonchi or wheezing. Gastrointestinal - other findings: Soft, nontender, nondistended bowel sounds present. Extremities - other findings: Right lower leg swollen and inflamed cellulitis. Wound dressed Hosp A/P - Plan This is a 40-year-old man with a history of bipolar disorder admitted on account of severe right lower limb cellulitis. He is not making significant improvement with cellulitis extending beyond the demarcated line today. Sepsis At presentation No significantly worsening however not much improved BP stable Wound cultures growing staph and strep Continue treating for cellulitis. Right lower limb cellulitis Seems to have worsened overnight. Leukocytosis with bands. Bands was 56 on the first day and reduced to 25 however increased today to 32 Was initially on Vanco and Zosyn Yesterday was changed to Vanco and cefepime to increase of coverage for Staphylococcus. Cefepime has been changed to cefazolin today.. Wound culturesno gangrene so far We will add clindamycin for anaerobic coverage and toxin shutdown We will do MRI of knee and right lower limb to be sure this no abscess or osteomyelitisno osteomyelitis or deep abscess/infection noted. No necrotizing fasciitis. Appreciate ID input. Tachypnea Patient having tachypnea concerns for possible fluid overload Chest x-ray showed patchy left infiltrateto cultivate for pneumonia We will cover with antibiotics as above Monitor Edema Improved with diuresis We will monitor. Hypokalemia Secondary to diuresis yesterday Placed on electrolyte replacement Bipolar disorder Continue antipsychotic medications DVT prophylaxis
[2020-08-09] MEDS: CEFAZOLIN 2 GM in Premix Bag 1 BAG IVPB SCH ×2 (16:49→23:13)
[2020-08-10 09:03] LABS: Anion Gap 16 mmol/L (10-20); BUN (Urea Nitrogen) 7 mg/dL (8.9-20.6); Calc. Creatinine Clearance 253 mL/min (70-130); Calcium 8.4 mg/dL (7.8-10.44); Carbon Dioxide 22 mmol/L (22-29); Chloride 103 mmol/L (98-107); Estimated GFR-MDRD Greater than 90; Glucose 92 mg/dL (70-105); Sodium 138 mmol/L (136-145)
[2020-08-10] MEDS: busPIRone HCl 10 MG TAB PO SCH ×3 (09:03→21:15)
[2020-08-10] MEDS: Enoxaparin Sodium 40 MG/0.4 ML SYRINGE SC SCH (09:04)
[2020-08-10] MEDS: Gabapentin 400 MG CAP PO SCH ×4 (09:05→21:14)
[2020-08-10] MEDS: OXcarbazepine 300 MG TAB PO SCH ×2 (09:05→21:15)
[2020-08-10] MEDS: HYDROcodone/Acetaminophen 5/325 mg Tablet PO PRN ×3 (09:06→21:15)
[2020-08-10] MEDS ORDERED: Potassium Chloride 20 MEQ TAB PO SCH (09:30)
[2020-08-10 09:45] LABS: Hemoglobin 10.8 g/dL (14.0-18.0); Mean Corpuscular HGB CONC 33.4 g/dL (32.0-36.0); Mean Corpuscular Hemoglobin 31.7 pg (27.0-31.0); Mean Corpuscular Volume 95.1 fL (78.0-98.0); Platelet Count 357 thou/uL (130-400); RBC Distribution Width 11.8 % (11.5-14.5); White Blood Cell (WBC) Count 17.5 thou/uL (4.8-10.8)
[2020-08-10 10:08] LABS: Band 17 % (5-11); Eosinophils 2 % (0-10); Lymphocytes 14 % (21-51); Monocytes 4 % (0-10); Neutrophil 63 % (42-75)
[2020-08-10 10:09] LABS: MDiff Complete? YES; Platelet Morphology Comment Appears Adequate
[2020-08-10] MEDS ORDERED: Vancomycin HCl 1.75 GM in Sodium Chloride 0.9% 500 ML IVPB SCH (11:00)
[2020-08-10] MEDS: Morphine 2 MG/ML VIAL SLOW IVP PRN ×4 (11:34→23:12)
[2020-08-10] MEDS: Clindamycin/D5W 600 MG in Premix Bag 1 BAG IVPB SCH ×3 (11:36→23:51)
[2020-08-10] MEDS: CEFAZOLIN 2 GM in Premix Bag 1 BAG IVPB SCH ×3 (12:07→23:11)
[2020-08-10] MEDS: Vancomycin HCl 1.75 GM in Sodium Chloride 0.9% 500 ML IVPB SCH (12:10)
--- NOTE | 2020-08-10 14:03 | PDOC.HOSPP ---
- Subjective Encounter Date: 08/10/20 Encounter Time: 10:00 Subjective: Seen and examined in bed. He will complain of ongoing pain in his right leg unchanged from a day ago. Is generally upset about his progress so far. He denies any chest pain or shortness of breath. - Objective Vital Signs & Weight: Vital Signs (12 hours) Temp Pulse Resp BP Pulse Ox 08/10/20 11:48 98.9 F 87 17 142/90 H 97 08/10/20 09:30 94 L 08/10/20 02:40 98.6 F 103 H 20 132/82 94 L Weight Admit Weight 288 lb 3.2 oz Weight 288 lb 3.2 oz Result Diagrams: 08/10/20 06:15 08/10/20 06:00 Hospitalist ROS - Medication Medications: Active Medications Generic Name Dose Route Start Last Admin Trade Name Freq PRN Reason Stop Dose Admin Hydrocodone Bitart/Acetaminophen 1 tab 08/06/20 19:34 08/09/20 21:50 [place] 5/325 PO 1 tab Q4H PRN Administration Moderate Pain (4-6) Hydrocodone Bitart/Acetaminophen 2 tab 08/06/20 19:34 08/10/20 09:06 [place] 5/325 PO 2 tab Q4H PRN Administration Severe Pain (7-10) Buspirone HCl 30 mg 08/06/20 21:00 08/10/20 09:03 Buspar PO 30 mg TID ROSANNA Administration Enoxaparin Sodium 40 mg 08/07/20 09:00 08/10/20 09:04 Lovenox SC 40 mg 0900 ROSANNA Administration Gabapentin 800 mg 08/06/20 21:00 08/10/20 13:08 Neurontin PO 800 mg QID ROSANNA Administration Cefazolin Sodium/Dextrose 2 gm 50 mls @ 100 mls/hr 08/09/20 15:00 08/10/20 12:07 / Device IVPB 50 mls 0700,1500,2300 ROSANNA Administration Clindamycin Phosphate/Dextrose 50 mls @ 100 mls/hr 08/09/20 23:59 08/10/20 11:36 600 mg/ Device IVPB 50 mls 0600,1200,1800,2359 ROSANNA Administration Morphine Sulfate 2 mg 08/10/20 11:14 08/10/20 11:34 Morphine 2 Mg/Ml Vial SLOW IVP 2 mg Q4H PRN Administration Pain Naproxen 500 mg 08/08/20 16:04 08/08/20 17:21 Naprosyn PO 500 mg TIDPRN PRN Administration Mild-Moderate Pain (1-5) Oxcarbazepine 300 mg 08/06/20 21:00 08/10/20 09:05 Trileptal PO 300 mg BID ROSANNA Administration Quetiapine Fumarate 600 mg 08/06/20 21:00 08/09/20 21:49 Seroquel PO 600 mg HS ROSANNA Administration Sodium Chloride 10 ml 08/07/20 09:00 08/10/20 09:08 Flush - Normal Saline IVF 10 ml Q12HR ROSANNA Administration - Exam Heart - other findings: S1-S2 present and normal. No murmurs gallops or rubs. Respiratory - other findings: Air entry adequate bilaterally. No wheezes or rh onchi Gastrointestinal - other findings: Full, soft, nontender. Bowel sounds present and normal. Extremities - other findings: Swollen right lower limb fixation above the knee. If erythema. Neurological: cranial nerve grossly intact, no new deficit Psychiatric: A&O x 3 Hosp A/P - Plan This is a 40-year-old man with a history of bipolar disorder admitted on account of severe right lower limb cellulitiswound culture growing staph and strep. He is not making significant improvement with cellulitis extending beyond the demarcated line today. He complains of ongoing pain and is generally upset about his previous Sepsis At presentation No significantly worsening however not much improved BP stable Wound cultures growing staph and strept Continue treating for cellulitis. Right lower limb cellulitis Antibioticsvancomycin, cefazolin, clindamycin Seems to have worsened overnight. Leukocytosis with bands. Bands was 56 on the first day and reduced to 25 then 32 now between 15 and 17. Still has leukocytosis but improved from 21 at presentation to 17.5 today Was initially on Vanco and Zosyn Yesterday was changed to Vanco and cefepime to increase of coverage for Staphylococcus. Cefepime has been changed to cefazolin today.. Wound culturesgrowing staph and strep We add clindamycin for anaerobic coverage and toxin shutdown We will do MRI of knee and right lower limb to be sure this no abscess or osteomyelitisno osteomyelitis or deep abscess/infection noted. No necrotizing fasciitis. Appreciate ID input. Tachycardia Heart rate between 90s and 100. Likely secondary to pain/ongoing infection Pain relief with PRN opioids. Edema Improved with diuresis We will monitor. Hypokalemia Secondary to diuresis yesterday Placed on electrolyte replacement Bipolar disorder Continue antipsychotic medications DVT prophylaxis
[2020-08-11] MEDS: HYDROcodone/Acetaminophen 5/325 mg Tablet PO PRN ×6 (02:17→23:10)
[2020-08-11] MEDS: Morphine 2 MG/ML VIAL SLOW IVP PRN ×5 (03:44→21:11)
[2020-08-11] MEDS: Clindamycin/D5W 600 MG in Premix Bag 1 BAG IVPB SCH ×4 (05:58→23:11)
[2020-08-11] MEDS: CEFAZOLIN 2 GM in Premix Bag 1 BAG IVPB SCH ×3 (06:04→23:11)
[2020-08-11] MEDS: Enoxaparin Sodium 40 MG/0.4 ML SYRINGE SC SCH (07:38)
[2020-08-11] MEDS: Gabapentin 400 MG CAP PO SCH ×4 (07:38→21:11)
[2020-08-11] MEDS: OXcarbazepine 300 MG TAB PO SCH ×2 (07:39→21:11)
[2020-08-11] MEDS: busPIRone HCl 10 MG TAB PO SCH ×3 (07:39→21:10)
[2020-08-11 09:57] LABS: Hemoglobin 12.1 g/dL (14.0-18.0); Mean Corpuscular HGB CONC 33.5 g/dL (32.0-36.0); Mean Corpuscular Hemoglobin 31.8 pg (27.0-31.0); Mean Corpuscular Volume 94.8 fL (78.0-98.0); Mean Platelet Volume 6.8 fL (7.4-10.4); Platelet Count 446 thou/uL (130-400); RBC Distribution Width 12.1 % (11.5-14.5); Red Blood Cell (RBC) Count 3.81 mill/uL (4.70-6.10); White Blood Cell (WBC) Count 17.1 thou/uL (4.8-10.8)
[2020-08-11 10:13] LABS: Anion Gap 13 mmol/L (10-20); BUN (Urea Nitrogen) 8 mg/dL (8.9-20.6); Calc. Creatinine Clearance 230 mL/min (70-130); Calcium 8.9 mg/dL (7.8-10.44); Carbon Dioxide 28 mmol/L (22-29); Chloride 102 mmol/L (98-107); Estimated GFR-MDRD Greater than 90; Glucose 93 mg/dL (70-105); Potassium 3.5 mmol/L (3.5-5.1); Sodium 139 mmol/L (136-145); Vancomycin, Trough Less than 1.1 ug/mL
[2020-08-11] MEDS ORDERED: Potassium Chloride 20 MEQ TAB PO SCH (10:30)
[2020-08-11 11:12] LABS: Band 11 % (5-11); Eosinophils 1 % (0-10); Lymphocytes 11 % (21-51); MDiff Complete? YES; Metamyelocyte 1 % (0-0); Monocytes 9 % (0-10); Myelocyte 1 % (0-0); Neutrophil 66 % (42-75); Platelet Morphology Comment Appears Increased; Polychromasia SLIGHT = 2-3 cells (100X) (0-2/hpf)
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
[2020-08-11 17:35] LABS: Hemoglobin A1c 5.6 % (4.0-6.0)
--- NOTE | 2020-08-11 18:00 | PRG ---
DATE OF SERVICE: 08/11/2020 SUBJECTIVE: Very slow improvement. Still quite a bit of pain in the right lower extremity. Surgery evaluated the patient. They are going to try to do some I and D tomorrow. OBJECTIVES: VITAL SIGNS: His vital signs show T-max 100.1, blood pressure 140/93, and pulse 96. GENERAL: Does not appear in distress. LUNGS: Clear. HEART: S1 and S2, regular rate. ABDOMEN: Soft. EXTREMITIES: Right leg, now the area of erythema is more confluent towards the anterior aspect of the right leg. The prepatellar region now appears to be normal. There is still some erythema in the thigh. LABORATORY DATA: White cell count 17.1, hemoglobin 12.1, and platelets 446. ASSESSMENT AND DISCUSSION: Inflammatory process, right lower extremity with Staph aureus and group A Streptococcus, likely abscess. Continue cefazolin and clindamycin. Await on the surgical procedure tomorrow to see, if an abscess is found, this is one of those cases of cellulitis, there is an abscess in the subcutaneous tissue that is not obvious in the radiological examination, but we will see what turns out tomorrow. Job ID: [id number]
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
--- NOTE | 2020-08-11 21:24 | ULT ---
Right lower extremity venous Doppler ultrasound 08/11/2020 COMPARISON: None HISTORY: Pain with redness and edema, assess for DVT TECHNIQUE: Multiplanar grayscale sonographic imaging venous structures right lower extremity obtained with color flow and spectral analysis FINDINGS: Right common femoral vein, greater saphenous vein, profunda femoral vein, femoral vein, pop liteal vein, and posterior tibial vein are patent. Normal blood flow, augmentation, and compression within the deep venous system. No evidence for DVT. Mildly prominent right inguinal nodes are present . There is edema within the subcutaneous fat in the right calf region. IMPRESSION: No evidence for deep venous thrombosis of the right lower extremity.
[2020-08-12] MEDS: Morphine 2 MG/ML VIAL SLOW IVP PRN ×5 (03:08→20:29)
[2020-08-12] MEDS: Clindamycin/D5W 600 MG in Premix Bag 1 BAG IVPB SCH ×4 (05:17→23:56)
[2020-08-12] MEDS: CEFAZOLIN 2 GM in Premix Bag 1 BAG IVPB SCH ×3 (05:18→22:55)
[2020-08-12] MEDS: HYDROcodone/Acetaminophen 5/325 mg Tablet PO PRN ×4 (05:55→22:56)
--- NOTE | 2020-08-12 06:34 | PDOC.FM ---
- Subjective Subjective: Reports continued pain in his RLE. Denies N/V/D, SOB, chest pain. Reports that he tried to keep the leg elevated all night. Discussed today's plan with the patient including going for I&D. - Objective MAR Reviewed: Yes Vital Signs & Weight: Vital Signs (12 hours) Temp Pulse Resp BP Pulse Ox 08/11/20 19:20 96 08/11/20 19:05 98.3 F 86 18 164/83 H 96 Weight Admit Weight 130.725 kg Weight 130.725 kg I&O: 08/10/20 08/11/20 08/12/20 06:59 06:59 06:59 Intake Total 3640 1420 Balance 3640 1420 Result Diagrams: 08/11/20 09:36 08/11/20 09:36 Phys Exam - Physical Examination Constitutional: NAD Neck: supple, full ROM Respiratory: no wheezing, no rales, no rhonchi, clear to auscultation bilateral Cardiovascular: RRR, no significant murmur, no rub Gastrointestinal: soft, non-tender, no distention, positive bowel sounds Marked edema of the RLE, erythematous and warm, slightly tender to palpatio Dx/Plan - Plan Plan: Sepsis 2/2 Cellulitis -RLE -[facility] consulted and following -Leg wound Cultures: staph aureus and group a strep. -Current Abx: Clinda and cefazolin. Past Abx: zosyn (08/06-08/07), cefepime (08/07-08/09), and vanc (08/06-08/10). -Wound care consulted -CT RLE: extensive soft tissue edema. No evidence osteo -MRI RLE: extensive cellulitis, assoicated superficial fasciitis, subtle peripheral myositis changes involving anterior compartment muscle. No necrotising fasciitis. -Dr. Cruz, Gen Surgery, consulted; like OR today to assess for abscess; Appreciate recs -trending procal and CRP, labs pending -bl culture: NGTD Possible pneumonia -CXR: patchy airspace density of LLL, possible pneumonia -Antibiotic coverage with prior antibiotics -will monitor Chronic conditions: -Anxiety, Psychotic disorder: continue home meds from [facility] -Tobacco abuse: counseled cessation Diet: Regular Ppx: lovenox Code: DNAR, will discuss with patient further Dispo: pending further medical management
[2020-08-12] MEDS: busPIRone HCl 10 MG TAB PO SCH ×3 (07:55→21:37)
[2020-08-12] MEDS: Enoxaparin Sodium 40 MG/0.4 ML SYRINGE SC SCH (07:56)
[2020-08-12] MEDS: Gabapentin 400 MG CAP PO SCH ×4 (07:56→21:38)
[2020-08-12] MEDS: OXcarbazepine 300 MG TAB PO SCH ×2 (07:56→21:37)
[2020-08-12] MEDS: Polyethylene Glycol 3350 17 GM Packet PO SCH (07:57)
[2020-08-12] MEDS ORDERED: Neomycin-Polymyxin 1 ML AMP ONE (10:47)
[2020-08-12] MEDS ORDERED: Midazolam HCl 2 mg/2 ml Vial ONE (10:57)
[2020-08-12] MEDS ORDERED: Fentanyl 100 MCG/2 ML VIAL ONE ×2 (10:57→11:31)
[2020-08-12] MEDS ORDERED: Ondansetron PF 4 MG/2 ML Vial ONE (11:01)
[2020-08-12] MEDS ORDERED: Dexamethasone 20 MG/5 ML VIAL ONE (11:01)
[2020-08-12] MEDS ORDERED: Lidocaine 1% PF 5 ML VIAL ONE (11:01)
[2020-08-12] MEDS ORDERED: PROPOFOL 200 MG/20 ML VIAL ONE (11:01)
--- NOTE | 2020-08-12 11:58 | PRG ---
DATE OF SERVICE: 08/12/2020 Delgado was seen by Surgery yesterday. He has been taken this morning for a surgical exploration of his right lower extremity given the persistence of his symptoms and high white count to completely rule out a surgically treatable condition. We are also arranging he get some elevation on his right lower extremity to help with the edema. We will continue to follow with Dr. Holliday and the Surgery Service. Job ID: [id number]
[2020-08-12] MEDS ORDERED: Promethazine HCl 25 MG/ML VIAL IM PRN (12:05)
[2020-08-12] MEDS ORDERED: Ondansetron HCl/PF 4 MG/2 ML Vial IVP PRN (12:05)
[2020-08-12] MEDS ORDERED: HYDROmorphone 2 MG/ML VIAL SLOW IVP PRN (12:05)
[2020-08-12] MEDS ORDERED: Promethazine HCl 25 MG/ML VIAL SLOW IVP PRN (12:05)
[2020-08-13] MEDS: Clindamycin/D5W 600 MG in Premix Bag 1 BAG IVPB SCH ×3 (05:36→17:13)
[2020-08-13] MEDS: HYDROcodone/Acetaminophen 5/325 mg Tablet PO PRN ×4 (05:41→20:16)
--- NOTE | 2020-08-13 06:23 | PDOC.FM ---
- Subjective Subjective: Patient doing well today. S/p trip to the OR for I&D with surgery. Tolerating PO. Only complaint is being uncomfortable 2/2 how he is positioned in bed with his right leg elevated it is hurting his back. - Objective MAR Reviewed: Yes Vital Signs & Weight: Vital Signs (12 hours) Temp Pulse Resp BP Pulse Ox 08/13/20 04:00 98.1 F 98 18 124/74 98 08/13/20 00:00 98.2 F 105 H 18 140/70 97 08/12/20 20:00 98.5 F 83 18 132/86 94 L Weight Admit Weight 130.725 kg Weight 130.725 kg I&O: 08/11/20 08/12/20 08/13/20 06:59 06:59 06:59 Intake Total 3640 1420 720 Balance 3640 1420 720 Result Diagrams: 08/13/20 06:12 08/13/20 06:12 Phys Exam - Physical Examination Constitutional: NAD HEENT: moist MMs Neck: no JVD, full ROM Respiratory: no wheezing, clear to auscultation bilateral Cardiovascular: RRR, no significant murmur Gastrointestinal: soft, non-tender Musculoskeletal: pulses present Neurological: moves all 4 limbs Psychiatric: normal affect, A&O x 3 Deviation from normal: right leg wrapped, swelling, warmth & mild redness appreciated around wrap Dx/Plan - Plan Plan: Sepsis 2/2 Cellulitis -RLE -Miya consulted and following, appreciate the recs -Leg wound Cultures: staph aureus and group a strep. -Current Abx: Clinda and cefazolin. Past Abx: zosyn (08/06-08/07), cefepime (08/07- 08/09), and vanc (08/06-08/10). -Wound care consulted -CT RLE: extensive soft tissue edema. No evidence osteo -MRI RLE: extensive cellulitis, assoicated superficial fasciitis, subtle peripheral myositis changes involving anterior compartment muscle. No necrotising fasciitis. -Dr. Cruz, Gen Surgery, consulted, appreciate the recs. S/p trip to the OR for I&D, will follow up on recs and procedure note -CRP improving, WBC improving -bl culture: NGTD Possible pneumonia -CXR: patchy airspace density of LLL, possible pneumonia -Antibiotic coverage with prior antibiotics -will monitor Chronic conditions: -Anxiety, Psychotic disorder: continue home meds from [facility] -Tobacco abuse: counseled cessation Diet: Regular Ppx: lovenox Code: SKY, will discuss with patient further Dispo: pending further medical management
[2020-08-13 07:13] LABS: #Eosinphils 0.3 thou/uL (0.0-0.7); #Lymphocytes 2.2 thou/uL (1.20-3.40); #Neutrophils 8.9 thou/uL (1.40-6.50); %Basophils 0.3 % (0.0-1.0); %Eosinophils 2.3 % (0.0-10.0); %Lymphocytes 17.9 % (21.0-51.0); %Monocytes 7.7 % (0.0-10.0); %Neutrophils 71.9 % (42.0-75.0); Mean Corpuscular HGB CONC 32.7 g/dL (32.0-36.0); Mean Corpuscular Hemoglobin 30.7 pg (27.0-31.0); Mean Corpuscular Volume 93.8 fL (78.0-98.0); Mean Platelet Volume 6.9 fL (7.4-10.4); Platelet Count 486 thou/uL (130-400); Red Blood Cell (RBC) Count 3.92 mill/uL (4.70-6.10); White Blood Cell (WBC) Count 12.3 thou/uL (4.8-10.8)
[2020-08-13] MEDS: CEFAZOLIN 2 GM in Premix Bag 1 BAG IVPB SCH ×3 (07:19→22:00)
[2020-08-13 07:34] LABS: Anion Gap 15 mmol/L (10-20); BUN (Urea Nitrogen) 11 mg/dL (8.9-20.6); Calc. Creatinine Clearance 250 mL/min (70-130); Calcium 8.4 mg/dL (7.8-10.44); Carbon Dioxide 24 mmol/L (22-29); Chloride 102 mmol/L (98-107); Estimated GFR-MDRD Greater than 90; Glucose 105 mg/dL (70-105); Potassium 3.6 mmol/L (3.5-5.1); Sodium 137 mmol/L (136-145)
[2020-08-13] MEDS: busPIRone HCl 10 MG TAB PO SCH ×3 (08:42→21:55)
[2020-08-13] MEDS: OXcarbazepine 300 MG TAB PO SCH ×2 (08:43→21:55)
[2020-08-13] MEDS: Polyethylene Glycol 3350 17 GM Packet PO SCH (08:43)
[2020-08-13] MEDS: Gabapentin 400 MG CAP PO SCH ×4 (08:43→22:00)
[2020-08-13] MEDS: Enoxaparin Sodium 40 MG/0.4 ML SYRINGE SC SCH (08:43)
[2020-08-13] MEDS: Morphine 2 MG/ML VIAL SLOW IVP PRN ×2 (09:00→13:16)
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
--- NOTE | 2020-08-13 18:42 | PRG ---
DATE OF SERVICE: 08/13/2020 Please see note from Dr. Heavenly Sparks, for which I agree. The patient was seen, evaluated, discussed, and examined with the residents by bedside. This is a day of hospitalization 7 and postoperative day #1 for bad cellulitis in the right cedeno that went for surgery yesterday, I am assuming incision and drainage. On clindamycin and cefazolin, and seems to be improving overall after the surgery. Plan is to continue IV antibiotics and postop wound care. Job ID: [id number]
[2020-08-14] MEDS: Clindamycin/D5W 600 MG in Premix Bag 1 BAG IVPB SCH ×3 (00:33→11:02)
[2020-08-14] MEDS: HYDROcodone/Acetaminophen 5/325 mg Tablet PO PRN ×4 (04:50→23:29)
[2020-08-14 05:44] LABS: #Basophils 0.1 thou/uL (0.0-0.2); #Eosinphils 0.5 thou/uL (0.0-0.7); #Lymphocytes 1.8 thou/uL (1.20-3.40); #Monocytes 0.9 thou/uL (0.11-0.59); #Neutrophils 8.6 thou/uL (1.40-6.50); %Basophils 0.5 % (0.0-1.0); %Eosinophils 4.1 % (0.0-10.0); %Lymphocytes 14.9 % (21.0-51.0); %Monocytes 7.3 % (0.0-10.0); %Neutrophils 73.2 % (42.0-75.0); Hemoglobin 12.2 g/dL (14.0-18.0); Mean Corpuscular Hemoglobin 31.2 pg (27.0-31.0); Mean Corpuscular Volume 94.6 fL (78.0-98.0); Mean Platelet Volume 6.8 fL (7.4-10.4); Platelet Count 496 thou/uL (130-400); RBC Distribution Width 11.9 % (11.5-14.5); Red Blood Cell (RBC) Count 3.89 mill/uL (4.70-6.10); White Blood Cell (WBC) Count 11.8 thou/uL (4.8-10.8)
[2020-08-14] MEDS: CEFAZOLIN 2 GM in Premix Bag 1 BAG IVPB SCH ×3 (06:44→23:31)
[2020-08-14] MEDS: busPIRone HCl 10 MG TAB PO SCH ×3 (08:28→20:26)
[2020-08-14] MEDS: OXcarbazepine 300 MG TAB PO SCH ×2 (08:28→20:26)
[2020-08-14] MEDS: Enoxaparin Sodium 40 MG/0.4 ML SYRINGE SC SCH (08:28)
[2020-08-14] MEDS: Gabapentin 400 MG CAP PO SCH ×4 (08:28→20:32)
[2020-08-14] MEDS: Polyethylene Glycol 3350 17 GM Packet PO SCH (08:29)
--- NOTE | 2020-08-14 10:32 | PDOC.FM ---
- Subjective Subjective: Patient resting comfortably in bed this morning. Pain improved compared to admission. 6/10 in intensity, but still bothering him. Able to get up and walk to go to the restroom. Tolerating PO without difficulty. No CP, SOB, abdominal pain, edema. - Objective MAR Reviewed: Yes Vital Signs & Weight: Vital Signs (12 hours) Temp Pulse Resp BP Pulse Ox 08/14/20 08:29 96 08/14/20 08:12 97.8 F 88 18 134/79 96 08/14/20 04:00 98.6 F 102 H 18 142/84 H 96 08/14/20 00:00 98.3 F 108 H 18 121/77 94 L Weight Admit Weight 130.725 kg Weight 130.725 kg I&O: 08/13/20 08/14/20 08/15/20 06:59 06:59 06:59 Intake Total 920 1060 Balance 920 1060 Result Diagrams: 08/14/20 05:32 08/13/20 06:12 Phys Exam - Physical Examination Constitutional: NAD HEENT: moist MMs Neck: supple, full ROM Respiratory: no wheezing, clear to auscultation bilateral Cardiovascular: RRR, no significant murmur Gastrointestinal: soft, non-tender, positive bowel sounds Musculoskeletal: pulses present improved swelling of RLE Neurological: moves all 4 limbs Psychiatric: normal affect, A&O x 3 Skin: normal turgor Deviation from normal: right leg wrapped, improved redness around markings, decreased swelling Dx/Plan - Plan Plan: Sepsis 2/2 RLE Cellulitis -Miya consulted and following, appreciate the recs -Leg wound Cultures: staph aureus and group a strep. -Current Abx: Clinda and cefazolin. Past Abx: zosyn (08/06-08/07), cefepime (08/07- 08/09), and vanc (08/06-08/10). -Wound care consulted -CT RLE: extensive soft tissue edema. No evidence osteo -MRI RLE: extensive cellulitis, assoicated superficial fasciitis, subtle peripheral myositis changes involving anterior compartment muscle. No necrotising fasciitis. -Gen Surgery, consulted, appreciate the recs. S/p trip to the OR for I&D, will follow up on recs and procedure note -CRP improving, WBC improving -bl culture: NGTD Possible pneumonia -CXR: patchy airspace density of LLL, possible pneumonia -Antibiotic coverage with prior antibiotics -will monitor Chronic conditions: -Anxiety, Psychotic disorder: continue home meds from [facility] -Tobacco abuse: counseled cessation Diet: Regular Ppx: lovenox Code: APOLLOR, will discuss with patient further Dispo: pending further medical management
[2020-08-14] MEDS: Morphine 2 MG/ML VIAL SLOW IVP PRN ×2 (10:56→17:29)
--- NOTE | 2020-08-14 10:59 | PRG ---
DATE OF SERVICE: 08/14/2020 Please see the note from Dr. Sparks for which I agree. Patient was seen, evaluated, discussed, and examined with the residents by bedside. Postop day 2 after I and D of his right lower leg and cellulitis and abscess. Pain packer he is improving, although still fairly severe pain. Otherwise, mood etc is stable on the bipolar. No other major changes noted. Wound care and management per surgery, but a picture of this morning did look improved. Job ID: [id number]
[2020-08-15 05:53] LABS: #Eosinphils 0.3 thou/uL (0.0-0.7); #Lymphocytes 1.8 thou/uL (1.20-3.40); #Monocytes 0.8 thou/uL (0.11-0.59); #Neutrophils 5.7 thou/uL (1.40-6.50); %Basophils 0.2 % (0.0-1.0); %Eosinophils 3.2 % (0.0-10.0); %Lymphocytes 20.6 % (21.0-51.0); %Monocytes 9.4 % (0.0-10.0); %Neutrophils 66.6 % (42.0-75.0); Hemoglobin 12.4 g/dL (14.0-18.0); Mean Corpuscular HGB CONC 32.8 g/dL (32.0-36.0); Mean Corpuscular Hemoglobin 30.7 pg (27.0-31.0); Mean Corpuscular Volume 93.6 fL (78.0-98.0); Mean Platelet Volume 6.9 fL (7.4-10.4); Platelet Count 511 thou/uL (130-400); RBC Distribution Width 12.1 % (11.5-14.5); Red Blood Cell (RBC) Count 4.05 mill/uL (4.70-6.10); White Blood Cell (WBC) Count 8.6 thou/uL (4.8-10.8)
[2020-08-15] MEDS: CEFAZOLIN 2 GM in Premix Bag 1 BAG IVPB SCH ×3 (06:16→22:25)
--- NOTE | 2020-08-15 06:19 | PDOC.FM ---
- Subjective Subjective: Patient reports right leg soreness and pain rated current 8/10 since walking yesterday. Denies chills, sweating, headache, vision changes, chest pain, palpitations, SOB, nausea and abdominal pain and constipation. - Objective MAR Reviewed: Yes Vital Signs & Weight: Vital Signs (12 hours) Temp Pulse Resp BP Pulse Ox 08/15/20 04:00 98.3 F 101 H 18 113/73 97 08/14/20 23:40 98.6 F 101 H 18 106/74 94 L 08/14/20 20:00 99.3 F 85 16 153/92 H 95 Weight Admit Weight 130.725 kg Weight 130.725 kg I&O: 08/13/20 08/14/20 08/15/20 06:59 06:59 06:59 Intake Total 920 1060 2964 Balance 920 1060 2964 Result Diagrams: 08/15/20 05:05 08/13/20 06:12 Phys Exam - Physical Examination Constitutional: NAD Resting comfortably HEENT: moist MMs, sclera anicteric Neck: supple, full ROM Respiratory: no wheezing, clear to auscultation bilateral Cardiovascular: RRR, no significant murmur Gastrointestinal: soft, non-tender, positive bowel sounds Musculoskeletal: pulses present, edema present Nonpitting edema, right foot up to knee Neurological: non-focal, moves all 4 limbs Psychiatric: normal affect, A&O x 3 Skin: no rash Deviation from normal: Right leg wrapped in bandage. No erythema present. Dx/Plan - Plan Plan: Sepsis 2/2 RLE Cellulitis and subcutaneous abscess s/p I&D -Miya consulted and following, appreciate the recs -Leg wound cultures: staph aureus and group a strep. -Current Abx: Cefazolin. Past Abx: zosyn (08/06-08/07), cefepime (08/07-08/09), vanc (08/06-08/10), clinda (08/09-08/14) -Wound care consulted -CT RLE: extensive soft tissue edema. No evidence osteo -MRI RLE: extensive cellulitis, associated superficial fasciitis, subtle peripheral myositis changes involving anterior compartment muscle. No necrotising fasciitis. -Gen Surgery, consulted, appreciate the recs. S/p OR for I&D on 08/12, f/u recs -CRP improving, WBC improving -bl culture: NGTD Possible pneumonia -CXR: patchy airspace density of LLL, possible pneumonia -Antibiotic coverage with prior antibiotics -will monitor Anxiety Bipolar disorder -Continue home meds from [facility] Tobacco abuse -Counseled cessation Ppx: lovenox Code: DNAR PCP: [facility] call Dispo: Home pending further medical management Addendum - Attending - Attending Attestation Date/Time: 08/15/20 1323 I personally evaluated the patient and discussed the management with Dr. Turner. I agree with the History, Examination, Assessment and Plan documented above with any addition or exceptions noted below.
[2020-08-15] MEDS: Enoxaparin Sodium 40 MG/0.4 ML SYRINGE SC SCH (08:06)
[2020-08-15] MEDS: Gabapentin 400 MG CAP PO SCH ×4 (08:07→21:15)
[2020-08-15] MEDS: OXcarbazepine 300 MG TAB PO SCH ×2 (08:07→21:15)
[2020-08-15] MEDS: busPIRone HCl 10 MG TAB PO SCH ×3 (08:07→21:15)
[2020-08-15] MEDS: HYDROcodone/Acetaminophen 5/325 mg Tablet PO PRN ×4 (08:07→22:24)
[2020-08-15] MEDS: Polyethylene Glycol 3350 17 GM Packet PO SCH (08:10)
--- NOTE | 2020-08-15 10:25 | PRG ---
DATE OF SERVICE: 08/15/2020 SUBJECTIVE: The patient is doing well. He feels well and would like to go home. He has learned wound care packing. He is ambulating well. No complaints at this time. OBJECTIVE: VITAL SIGNS: Currently, temperature of 98.2, pulse of 86, respiratory rate of 18, O2 saturation of 95%, and blood pressure of 119/82. GENERAL: The patient is awake and alert. He is in no apparent distress. He is lying comfortably in bed at this time. EXTREMITIES: Evaluation of his right lower leg shows an Kj wrap present to his lower leg overlying the surgical site of his I and D. Distal neurovascular status intact. Erythema has improved since previous visits. Swelling is also improved since previous visits. LABORATORY DATA: Laboratory data shows cultures to be growing out strep species with broad sensitivity. ASSESSMENT: Status post incision and drainage of right lower extremity for abscess. PLAN: At this time, per our service, the patient is okay to be dispo'ed home. He is ambulating well. He has learned home packing for his wound. He is pending antibiotic, and due to broad sensitivity, this could likely be a p.o. antibiotic. We will follow up with him in [facility] in 1 week. Job ID: [id number]
[2020-08-15] MEDS: Morphine 2 MG/ML VIAL SLOW IVP PRN (11:48)
--- NOTE | 2020-08-15 22:15 | PRG ---
DATE OF SERVICE: 08/15/2020 SUBJECTIVE: Feeling better. Still when he does a lot of activity and gets up the leg pain gets worse, but at least he is able to ambulate now. No back pain. No shortness of breath, abdominal pain, or diarrhea. OBJECTIVE: VITAL SIGNS: He has been afebrile, heart rate 86, O2 saturation 95% on room air, and BP 119/82. EXTREMITIES: Right leg with dressing. There is a photo from the Wound, which shows slit-like opening, measuring about 7-8 cm x 2 with a red base. HEENT: Ocular movements conjugate. LUNGS: Clear. HEART: S1, S2. Regular rate. ABDOMEN: Soft, not distended or tender. LABORATORY DATA: Sodium 137, creatinine 0.72. White cell count down to 8.6, hemoglobin 12.4, platelets 511. Culture is Staph aureus methicillin sensitive from the abscess culture. ASSESSMENT/DISCUSSION: Inflammatory process, right lower extremity with abscess due to methicillin-sensitive Staph aureus. The patient is currently on cefazolin and has had surgical debridement and whenever ready, I believe in the next 48 hours, he would be able to go home on oral Keflex 500 four times daily for another 7-10 days. He was not bacteremic, so there is less risk for distant dissemination. Job ID: [id number]
[2020-08-16 05:38] LABS: #Basophils 0.1 thou/uL (0.0-0.2); #Eosinphils 0.3 thou/uL (0.0-0.7); #Lymphocytes 2.2 thou/uL (1.20-3.40); #Monocytes 0.7 thou/uL (0.11-0.59); #Neutrophils 4.2 thou/uL (1.40-6.50); %Basophils 0.7 % (0.0-1.0); %Eosinophils 3.5 % (0.0-10.0); %Lymphocytes 29.8 % (21.0-51.0); %Monocytes 8.9 % (0.0-10.0); %Neutrophils 57.1 % (42.0-75.0); Hemoglobin 12.4 g/dL (14.0-18.0); Mean Corpuscular HGB CONC 32.3 g/dL (32.0-36.0); Mean Corpuscular Hemoglobin 30.2 pg (27.0-31.0); Mean Corpuscular Volume 93.7 fL (78.0-98.0); Platelet Count 550 thou/uL (130-400); RBC Distribution Width 11.9 % (11.5-14.5); White Blood Cell (WBC) Count 7.3 thou/uL (4.8-10.8)
[2020-08-16] MEDS: CEFAZOLIN 2 GM in Premix Bag 1 BAG IVPB SCH (06:16)
[2020-08-16] MEDS: HYDROcodone/Acetaminophen 5/325 mg Tablet PO PRN ×2 (06:19→11:50)
--- NOTE | 2020-08-16 06:29 | PDOC.FM ---
- Subjective Subjective: Patient reports right leg pain and soreness after walking the hallway last evening. He denies headache, vision changes, chest pain, SOB, nausea, abdominal pain and edema. - Objective MAR Reviewed: Yes Vital Signs & Weight: Vital Signs (12 hours) Temp Pulse Resp BP Pulse Ox 08/15/20 20:00 98.7 F 97 18 126/83 95 Weight Admit Weight 130.725 kg Weight 130.725 kg I&O: 08/14/20 08/15/20 08/16/20 06:59 06:59 06:59 Intake Total 1060 3064 1989 Balance 1060 3064 1989 Result Diagrams: 08/16/20 05:08 08/13/20 06:12 Phys Exam - Physical Examination Constitutional: NAD HEENT: moist MMs, sclera anicteric Neck: supple, full ROM Respiratory: no wheezing, clear to auscultation bilateral Cardiovascular: RRR, no significant murmur Gastrointestinal: soft, non-tender, positive bowel sounds Musculoskeletal: pulses present, edema present Nonpitting edema of right foot, improved Neurological: non-focal, moves all 4 limbs Psychiatric: normal affect, A&O x 3 Skin: no rash Deviation from normal: Right lower leg wrapped. No erythema present. Dx/Plan - Plan Plan: Sepsis, resolved 2/2 RLE Cellulitis and subcutaneous abscess s/p I&D -CT RLE: extensive soft tissue edema. No evidence osteo -MRI RLE: extensive cellulitis, associated superficial fasciitis, subtle peripheral myositis changes involving anterior compartment muscle. No necrotising fasciitis. -Leg wound cultures: staph aureus and group a strep. -bl culture: NGTD -Gen Surgery, consulted, appreciate the recs. S/p OR for I&D on 08/12. Patient will follow up outpatient. -Miya consulted and following, appreciate the recs -Current Abx: Cefazolin. Past Abx: zosyn (08/06-08/07), cefepime (08/07-08/09), vanc (08/06-08/10), clinda (08/09-08/14). -CRP improving, WBC improving -Wound care consulted Possible pneumonia on CXR -CXR: patchy airspace density of LLL, possible pneumonia -Antibiotic coverage with prior antibiotics -Lung exam normal Anxiety Bipolar disorder -Continue home meds from [facility] Tobacco abuse -Counseled cessation Ppx: lovenox Code: DNR PCP: [facility] call Dispo: Home with HH and wound care pending further medical management Addendum - Attending - Attending Attestation Date/Time: 08/16/20 1905 I personally evaluated the patient and discussed the management with Dr. Turner. I agree with the History, Examination, Assessment and Plan documented above with any addition or exceptions noted below.
[2020-08-16] MEDS: Gabapentin 400 MG CAP PO SCH ×2 (08:49→11:51)
[2020-08-16] MEDS: busPIRone HCl 10 MG TAB PO SCH (08:50)
[2020-08-16] MEDS: Enoxaparin Sodium 40 MG/0.4 ML SYRINGE SC SCH (08:50)
[2020-08-16] MEDS: Polyethylene Glycol 3350 17 GM Packet PO SCH (08:52)
[2020-08-16] MEDS: Morphine 2 MG/ML VIAL SLOW IVP PRN (10:26)
[2020-08-16] MEDS: OXcarbazepine 300 MG TAB PO SCH (10:27)
[2020-08-16 18:24] VITALS: BP 125/80; TEMP 98.2
== END 2020-08-16 13:30 | disposition home or self-care (01) | DRG 853 ==
LOC: ERS 13:59 → T4-B 16:32
PROVIDERS: ADMIT Student in an Organized Health Care Education/Training Program; ATTEND Family Medicine
PROC: 0J9N0ZZ Drainage of Right Lower Leg Subcutaneous Tissue and Fascia, Open Approach (ICD-10-PCS; principal; 2020-08-12)
DX: A41.9 Sepsis, unspecified organism (principal); J18.9 Pneumonia, unspecified organism; L03.115 Cellulitis of right lower limb; F41.9 Anxiety disorder, unspecified; F31.9 Bipolar disorder, unspecified; F17.210 Nicotine dependence, cigarettes, uncomplicated; I10 Essential (primary) hypertension; E87.6 Hypokalemia; Z79.899 Other long term (current) drug therapy; Z66 Do not resuscitate; Z20.828 Contact with and (suspected) exposure to other viral communicable diseases
CPT/HCPCS: 36415; 71045; 80048; 80053; 80202; 82565; 83036; 83605; 84145; 84443; 85007; 85025; 85027; 85060; 85652; 86140; 86706; 86780; 86803; 87040; 87070; 87077; 87186; 87205; 87340; 87389; 87635; 96361; 96365; 96367; 96375; J0690; J0692; J1100; J1650; J1885; J1940; J2250; J2270; J2405; J2543; J2704; J3010; J3370; J3490; J7030; Q9967; U0003